=== PATIENT | female | born 1950 | race Caucasian/White ===

== ENCOUNTER 2021-12-02 08:26 | Emergency (ER) | payer MEDICARE, SELFPAY ==
--- NOTE | ~2021-12-02 | CT_ITS ---
EXAMINATION: CT ANGIOGRAM OF THE CHEST WITH AND WITHOUT CONTRAST (CT PULMONARY ANGIOGRAM FOR PE) CLINICAL INFORMATION: Reason for Exam sob COMPARISON: None TECHNIQUE: Prior to contrast administration, noncontrast localization images were obtained. Subsequently, multidetector volumetric imaging was performed from the thoracic inlet to below the diaphragms following the administration of 65 mL Omnipaque 350 intravenous contrast. No contrast reaction reported Sagittal, coronal, and MIP oblique sagittal reformatted images were obtained on the CT workstation, uploaded to PACS, and reviewed. This CT examination was performed using dose optimization techniques as appropriate, variously including the following: *Automated exposure control *Adjustment of mA and/or kV according to patient size (this includes techniques or standardized protocols for targeted exams where dose is matched to indication/reason for exam; i.e. extremities or head) *Use of iterative reconstruction technique Total exam dose-length product 226 mGy-cm FINDINGS: QUALITY OF STUDY/CONTRAST BOLUS: Satisfactory. Assessment of the subsegmental pulmonary arteries no left lower lobe is somewhat limited by respiratory motion. PULMONARY ARTERIES: No central or segmental pulmonary emboli. THORACIC AORTA: Ascending thoracic aorta is dilated to 4.7 cm at its tubular segment. The descending thoracic aorta measures 2.8 cm in diameter. No evidence of dissection or intramural hematoma. Mild atherosclerotic calcification in the thoracic aorta. The descending thoracic aorta is tortuous. LUNG: A few calcified granulomas are present in the right lung. There is a solid, round, noncalcified 3 mm pulmonary nodule in the lateral aspect of the left lower lobe. Per the Fleischner guidelines, no additional follow-up is necessary for a nodule of this size. No suspicious pulmonary nodules are identified. Mild dependent atelectasis. Minimal centrilobular emphysema. Central airways are clear. PLEURA: No pleural effusion or pneumothorax. MEDIASTINUM: Normal heart size. No pericardial effusion. No hilar or mediastinal lymphadenopathy. No evidence of septal bowing or right heart strain. There is a 1.1 cm hypoattenuating left thyroid nodule. CHEST WALL/AXILLA: No axillary or internal mammary lymphadenopathy. OSSEOUS STRUCTURES: Moderate right convex scoliosis in the lower thoracic spine. No acute fracture or malalignment. Osteoarthritis is present in the acromioclavicular and glenohumeral joints. UPPER ABDOMEN: There is a 3.9 cm lesion in the posterolateral aspect of the right hepatic lobe at segment 7 which has an attenuation value of 39 Hounsfield units. No reflux of contrast into the hepatic veins to suggest elevated right heart pressures. CT/CT angio chest PE protocol IMPRESSION: 1. No evidence of pulmonary embolism. 2. A 3.9 cm hypoattenuating lesion in the right hepatic lobe. This is incompletely assessed on this study. Consider follow-up MRI with and without contrast for more complete characterization on a nonemergent basis. 3. Mild aneurysmal dilatation of the ascending thoracic aorta (4.7 cm). No acute vascular abnormalities are identified. Consider follow-up CT in one year for further assessment. 4. A 1.1 cm left thyroid nodule. Based on the recommendations of the ACR Incidental Thyroid Findings Committee (JACR 2015 Nov; 12(2):143-50), no imaging followup is recommended for incidental thyroid nodules with largest axial dimension less than 1.5 cm in patients greater than 35 years of age in the absence of high risk imaging features, symptomatic thyroid disease, or increased risk for thyroid cancer. VTE: negative
[2021-12-02 08:34] VITALS: BP 153/104; PULSE 139; RESP 15; TEMP 36.6; O2SAT 98; BMI 23.7
--- NOTE | 2021-12-02 08:38 | ECG_ITS ---
Test Reason : PALPITATION Blood Pressure : / mmHG Vent. Rate : 119 BPM Atrial Rate : 119 BPM P-R Int : 096 ms QRS Dur : 082 ms QT Int : 446 ms P-R-T Axes : 067 -56 093 degrees QTc Int : 627 ms Sinus tachycardia with short [place] Left anterior fascicular block ST & T wave abnormality, consider lateral ischemia Prolonged QT Abnormal ECG No previous ECGs available Referred By: Swetha Schaefer Electronically Signed By:Augustin Villegas
--- NOTE | 2021-12-02 10:16 | ED_ITS ---
HPI - Arrhythmia/Palpitations General Chief Complaint: Arrhythmia/Palpitations Stated Complaint: sob increased heart rate Time Seen by Provider: 12/02/21 10:03 History of Present Illness HPI narrative: Patient is a 71-year-old female with a history of thoracic aneurysm being followed. Presented today with having episode of palpitation that was noted in her smart watch. Patient denies any history smoking and a history diabetes any family history of coronary artery disease no history of DC positive history of hypertension high cholesterol. Patient noted some fever low grade 1 100.1. No coughing or upper respiratory symptoms no UTI symptoms no rash having been outside positive generalized malaise has a history of thoracic aneurysm. Patient noted heart rate up to 150 at the time patient did not have any syncopal or near syncopal episode. The 150 was noted by her Smart launch patient denies any bloody stool. No coughing congestion upper respiratory symptoms immunized for COVID Related Data Home Medications Medication Instructions Recorded Confirmed amlodipine 5 mg tablet 5 mg PO DAILY 12/07/20 ascorbate calcium (vitamin C) 500 500 mg PO DAILY 12/07/20 mg tablet calcium carbonate 500 mg calcium 750 mg PO DAILY tab 12/07/20 (1,250 mg) tablet (Calcium 500) lisinopril 30 mg tablet 30 mg PO DAILY 12/07/20 metoprolol succinate 25 mg 25 mg PO DAILY 12/07/20 tablet,extended release 24 hr multivitamin 1 tab PO DAILY 12/07/20 trazodone 50 mg tablet 50 mg PO BEDTIME 12/07/20 Allergies Allergy/AdvReac Type Severity Reaction Status Date / Time No Known Allergies Allergy Verified 12/02/21 10:04 Review of Systems Review of Systems: No chest pain or diaphoresis No focal weakness Yes all other systems are reviewed and are negative [facility] Past Medical History Attestation statement: The following information was validated with the patient. Medical History Arthritis HTN (hypertension) Social History Social History Alcohol intake: current Alcohol intake frequency: a few times a week Patient Tobacco Use Status: Never used Tobacco Use of substances other than those prescribed or required for medical reasons: No Advance Directives: No Advance Directives Information Provided: Yes Physical Exam Vital Signs: Vital Signs: Last Vital Signs Temp 98.6 F 02/12/22 11:54 Pulse 79 12/02/21 11:54 Resp 16 12/02/21 11:54 BP 121/82 12/02/21 11:54 Pulse Ox 99 12/02/21 11:54 BMI result Body Mass Index 23.7 Appearance: Alert. Oriented X3. No acute distress. Eyes: Pupils equal, round and reactive to light. ENT: Pharynx normal. Neck: Normal inspection. Neck supple. No lymph nodes noted. No crepitus CVS: Normal heart rate and rhythm. Pulses normal. Normal S1 and S2 Respiratory: No respiratory distress. Breath sounds normal. No Wheezing. No rales Abdomen: Soft and nontender. No rigidity. No distention. good BS x4 Skin: Skin warm and dry. Normal skin color. Normal skin turgor. Extremities: No lower extremity edema. Neurovascular intact to all extremities. No Lacerations. No Rash Neuro: Oriented X 3. No motor deficit. No sensory deficit. Moving all extermities. No slurred speech MDM - Arrhythmia/Palpitations MDM Narrative Medical decision making narrative: Patient's EKG showed a sinus pattern heart rate was 120 CO QRS normal. QTC was prolonged. There is no acute ST segment elevation is diffuse T-wave flattening noted. Patient's heart rate since then has remained in the 70s and 80s. A CTA of the chest was done. It shows no evidence for pulmonary emboli. There is an ascending aorta dilated mildly of 4.7 cm. The descending thoracic measures 2.8 cm in size. There is no evidence for dissection there is no evidence for intramural hematoma there is mild arthrosclerotic plaque noted. There is a 3.9 cm hypo attenuation lesion in the right liver. Follow-up requested. The finding was discussed with patient. A copy of the CT report given to her. Patient has a thoracic surgeon at [facility] to follow-up for the aneurysm. [facility]ia ent knows about the aneurysm in the past. Is also a thyroid nodule noted on the CT. It is rather small in size 1.1 cm in size. Patient's TSH is normal no evidence for hyperthyroid patient's hemoglobin is baseline patient is well appearing no distress. Will discharge patient home. Lab Data Attestation: I reviewed the patient's lab results. Result diagrams: 12/02/21 10:35 12/02/21 10:35 Labs: Lab Results 12/02/21 12/02/21 12/02/21 Range/Units 10:35 10:35 10:35 WBC 9.9 (4.8-10.8) X10*3/uL RBC 4.57 (4.20-5.50) X10*6/uL Hgb 14.2 (12.0-16.0) g/dl Hct 41.7 (37.0-47.0) % MCV 91.2 (80.0-98.0) fL MCH 31.1 (27.0-33.0) pg MCHC 34.1 (31.0-35.0) g/dl RDW 13.7 (11.0-16.0) % Plt Count 240 (160-400) X10*3/uL MPV 10.0 (9.4-12.3) fL Immature Gran % (Auto) 0.4 (0.0-0.4) % Neut % (Auto) 88.0 H (45-73) % Lymph % (Auto) 5.4 L (20-40) % Pinal % (Auto) 6.0 (2-11) % Eos % (Auto) 0.1 (0-4) % Baso % (Auto) 0.1 (0-2) % Lymph # (Auto) 0.5 L (1.2-4.9) X10*3/uL Pinal # (Auto) 0.6 (0.1-1.2) X10*3/uL Eos # (Auto) 0.0 (0.0-0.4) X10*3/uL Baso # (Auto) 0.0 (0.0-0.2) X10*3/uL Abs Immat Gran (auto) 0.04 H (0.00-0.03) X10*3/uL Absolute Neuts (auto) 8.7 H (2.0-8.3) x10*3/uL Absolute Nucleated RBC 0.000 (0.0-0.012) X10*3/uL Nucleated RBC % (auto) 0.0 (0.0-0.2) /100WBC Sodium 138 (135-145) mmol/L Potassium 4.4 (3.3-5.1) mmol/L Chloride 102 (96-108) mmol/L Carbon Dioxide 29 (22-29) mmol/L Anion Gap 11 L (12-20) BUN 19 H (9-16) mg/dL Creatinine 0.92 (0.5-1.4) mg/dL Estim Creat Clear Calc 46.3 Estimated GFR > 60 Random Glucose 127 H (60-115) mg/dL Calcium 10.5 H (8.4-10.2) mg/dL Total Bilirubin 0.8 (0.0-1.0) mg/dL Direct Bilirubin 0.3 (0.0-0.5) mg/dL AST 22 (5-31) U/L ALT 15 (0-31) U/L Alkaline Phosphatase 69 (39-117) U/L Troponin I High Sens 8.5 (<3.5-17.0) ng/L Total Protein 6.7 (6.5-8.0) g/dL Albumin 4.1 (3.5-5.0) g/dL TSH (0.32-4.0) uIU/mL Urine Color Urine Appearance Urine pH (5.0-8.0) Ur Specific Meredith (1.005-1.025) Urine Protein (NEG-TRACE) MG/DL Urine Glucose (UA) (NEG) MG/DL Urine Ketones (NEG) MG/DL Urine Blood (NEG) Urine Nitrite (NEG) Ur Leukocyte Esterase (NEG) Urine RBC (0) /HPF Urine WBC (0-4) /HPF Ur Squamous Epith Cells /LPF Urine Bacteria /LPF 12/02/21 12/02/21 Range/Units 10:35 11:51 WBC (4.8-10.8) X10*3/uL RBC (4.20-5.50) X10*6/uL Hgb (12.0-16.0) g/dl Hct (37.0-47.0) % MCV (80.0-98.0) fL MCH (27.0-33.0) pg MCHC (31.0-35.0) g/dl RDW (11.0-16.0) % Plt Count (160-400) X10*3/uL MPV (9.4-12.3) fL Immature Gran % (Auto) (0.0-0.4) % Neut % (Auto) (45-73) % Lymph % (Auto) (20-40) % Pinal % (Auto) (2-11) % Eos % (Auto) (0-4) % Baso % (Auto) (0-2) % Lymph # (Auto) (1.2-4.9) X10*3/uL Pinal # (Auto) (0.1-1.2) X10*3/uL Eos # (Auto) (0.0-0.4) X10*3/uL Baso # (Auto) (0.0-0.2) X10*3/uL Abs Immat Gran (auto) (0.00-0.03) X10*3/uL Absolute Neuts (auto) (2.0-8.3) x10*3/uL Absolute Nucleated RBC (0.0-0.012) X10*3/uL Nucleated RBC % (auto) (0.0-0.2) /100WBC Sodium (135-145) mmol/L Potassium (3.3-5.1) mmol/L Chloride (96-108) mmol/L Carbon Dioxide (22-29) mmol/L Anion Gap (12-20) BUN (9-16) mg/dL Creatinine (0.5-1.4) mg/dL Estim Creat Clear Calc Estimated GFR Random Glucose (60-115) mg/dL Calcium (8.4-10.2) mg/dL Total Bilirubin (0.0-1.0) mg/dL Direct Bilirubin (0.0-0.5) mg/dL AST (5-31) U/L ALT (0-31) U/L Alkaline Phosphatase (39-117) U/L Troponin I High Sens (<3.5-17.0) ng/L Total Protein (6.5-8.0) g/dL Albumin (3.5-5.0) g/dL TSH 1.63 (0.32-4.0) uIU/mL Urine Color STRAW Urine Appearance CLEAR Urine pH 7.0 (5.0-8.0) Ur Specific Meredith 1.010 (1.005-1.025) Urine Protein NEG (NEG-TRACE) MG/DL Urine Glucose (UA) NEG (NEG) MG/DL Urine Ketones NEG (NEG) MG/DL Urine Blood NEG (NEG) Urine Nitrite NEG (NEG) Ur Leukocyte Esterase NEG (NEG) Urine RBC 0 (0) /HPF Urine WBC 0 (0-4) /HPF Ur Squamous Epith Cells TRACE /LPF Urine Bacteria NONE /LPF Discharge Plan Discharge Clinical Impression: Heart palpitations Patient Disposition: Home, Self-Care Instructions: Heart Palpitations (DC), Thoracic Aortic Aneurysm (ED) Prescriptions: No Action metoprolol succinate 25 mg tablet extended release 24 hr 25 mg PO DAILY 0RF lisinopril 30 mg tablet 30 mg PO DAILY 0RF amlodipine 5 mg tablet 5 mg PO DAILY 0RF trazodone 50 mg tablet 50 mg PO BEDTIME 0RF multivitamin Tablet 1 tab PO DAILY 0RF calcium carbonate [Calcium 500] 500 mg calcium (1,250 mg) tablet 750 mg PO DAILY 0RF ascorbate calcium (vitamin C) 500 mg tablet 500 mg PO DAILY 0RF Referrals: Adalberto Naik MD [Primary Care Provider] - 2 days (Please follow-up with your primary care physician for the liver lesion approximately 3.9 cm in size in the right liver. Please also follow-up with your thoracic surgeon for the ascending thoracic aortic aneurysm which you have known about. It was 4.7 cm in size.) Augustin Villegas MD [Physician] - 2 days
[2021-12-02 10:41] LABS: MANUAL DIFF FLAG NO
[2021-12-02] MEDS: LORazepam 2 MG/ML VIAL 0.5 MG IVPUSH (10:43)
[2021-12-02] MEDS: 0.9 % Sodium Chloride 1,000 ML 999 ML IV (10:43)
[2021-12-02 10:44] VITALS: BP 133/78; PULSE 65; PULSE 69; RESP 16; O2SAT 98
[2021-12-02 10:44] LABS: Basophils Percent Auto 0.1 % (0-2); Eosinophils Percent Auto 0.1 % (0-4); Hematocrit 41.7 % (37.0-47.0); Hemoglobin 14.2 g/dl (12.0-16.0); Imm Gran Abs Auto 0.04 X10*3/uL (0.00-0.03); Imm Gran Pct Auto 0.4 % (0.0-0.4); Lymphocytes Absolute Auto 0.5 X10*3/uL (1.2-4.9); Lymphocytes Percent Auto 5.4 % (20-40); Mean Corpuscular HGB Conc 34.1 g/dl (31.0-35.0); Mean Corpuscular Hemoglobin 31.1 pg (27.0-33.0); Mean Corpuscular Volume 91.2 fL (80.0-98.0); Monocytes Absolute Auto 0.6 X10*3/uL (0.1-1.2); Neutrophils Absolute Auto 8.7 x10*3/uL (2.0-8.3); Platelet Count 240 X10*3/uL (160-400); Red Blood Count 4.57 X10*6/uL (4.20-5.50); Red Cell Distribution Width 13.7 % (11.0-16.0); White Blood Count 9.9 X10*3/uL (4.8-10.8)
[2021-12-02 11:06] LABS: Troponin-I High Sensitivity 8.5 ng/L (<3.5-17.0)
[2021-12-02 11:07] LABS: Alanine Aminotransferase 15 U/L (0-31); Albumin Level 4.1 g/dL (3.5-5.0); Alkaline Phosphatase 69 U/L (39-117); Anion Gap 11 (12-20); Aspartate Amino Transferase 22 U/L (5-31); Bilirubin Direct 0.3 mg/dL (0.0-0.5); Bilirubin Total 0.8 mg/dL (0.0-1.0); Blood Urea Nitrogen 19 mg/dL (9-16); Calcium 10.5 mg/dL (8.4-10.2); Carbon Dioxide 29 mmol/L (22-29); Chloride 102 mmol/L (96-108); Creatinine Clr Calc Pharmacy 46.3; Estimated Glomerular Filt Rate > 60; Glucose Random 127 mg/dL (60-115); Potassium 4.4 mmol/L (3.3-5.1); Sodium 138 mmol/L (135-145); Total Protein 6.7 g/dL (6.5-8.0)
[2021-12-02 11:21] LABS: TSH reflex Free T4 1.63 uIU/mL (0.32-4.0)
[2021-12-02 11:54] VITALS: BP 121/82; PULSE 79; RESP 16; TEMP 37; O2SAT 99
[2021-12-02 12:08] LABS: Appearance Urine CLEAR; Color Urine STRAW; Glucose Urine UA NEG (NEG); Leukocyte Esterase Urine NEG (NEG); Nitrite Urine NEG (NEG); Urine Blood NEG (NEG); Urine Ketones NEG (NEG); Urine Protein NEG (NEG-TRACE)
[2021-12-02 12:18] LABS: RBC Urine 0 /HPF (0); Squamous Epithelial Cell Urine TRACE /LPF; WBC Urine 0 /HPF (0-4)
[2021-12-02] MEDS: iohexoL 350 MG/ML 100 ML INFUS..BTL IV (12:28)
[2021-12-02 14:15] VITALS: BP 147/86; PULSE 81
== END 2021-12-02 14:19 | disposition home or self-care (01) ==
PROVIDERS: Emergency Provider Emergency Medicine Emergency Medical Services; PCP Internal Medicine
DX: R00.2 Palpitations (principal); I10 Essential (primary) hypertension
CPT/HCPCS: 36415; 71275; 80048; 80076; 81001; 84443; 84484; 85025; 93005; 96361; 96374; 99284; J2060; Q9967